=== PATIENT | female | born 1980 | race African-American/Black ===

== ENCOUNTER 2017-01-28 20:20 | Emergency (ER) | payer OTHER ==
[~2017-01-28] VITALS: Ht 172.7 cm; Wt 97.5 kg
[~2017-01-28 20:20] MED LIST: ALEVE220 M1; AMOXICILLIN 50500 MG PO; BACTRIM DS TAB1 EACH PO; BIRTH CONTROL; CEPHALEXIN; CIPROFLOXACIN500 M1 PO; EXCEDRIN CAPLE1 EACH PO; FLAGYL500 MG PO; FLEXERIL PO; IBUPROFEN 600600 M1 PO; IBUPROFEN 800800 M1 PO; IBUPROFEN 800800 MG PO; MEDROLDOSEPACK PO; MONONESSA1 EACH; NOHOMEMEDICATIONS; NORCO 5-325 TA1 EACH PO; OMEPRAZOLE 20 M20 M1; ONDANSETRON HCL4 M2 PO; ULTRAM 50MG TAB50 MG PO; ZOFRAN ODT4 MG PO; ZOFRAN4 MG PO
[2017-01-28 20:22] VITALS: BP 120/83
[2017-01-28] MEDS ORDERED: GENTAMICIN SU3 MG/ML OPHTHALMIC (20:30)
== END 2017-01-28 20:43 | disposition home or self-care (01) ==
LOC: ER 20:20
DX: H10.9 Unspecified conjunctivitis (principal); G43.909 Migraine, unspecified, not intractable, without status migrainosus; Z91.013 Allergy to seafood; Z91.018 Allergy to other foods

== ENCOUNTER 2018-05-05 11:40 | Emergency (ER) | payer OTHER ==
[~2018-05-05] VITALS: Ht 172.7 cm; Wt 90.7 kg
[~2018-05-05 11:40] MED LIST changes: +GENTAMICIN SU3 MG/ML OPHTHALMIC; +NORFLEX100 MG PO
[2018-05-05 13:13] LABS: ABSOLUTE NEUTROPHILS 2.6 thou/uL (1.4-8.2); BASOPHILS 0.5 % (0.0-2.0); EOSINOPHILS 2.6 % (0.0-3.0); HEMATOCRIT 40.4 % (37.0-47.0); HEMOGLOBIN 14.1 gm/dL (12.0-15.0); LYMPHOCYTES 41.7 % (24.0-44.0); MCHC 34.8 g/dL (28.0-37.0); MCV 83.3 fL (80.0-100.0); MONOCYTES 5.5 % (1.0-8.0); PLATELET COUNT 334 thou/uL (150-400); POLYS 49.7 % (36.0-66.0); RBC 4.85 mil/uL (4.20-5.00); RDW 13.9 % (10.5-14.5); WBC 5.3 thou/uL (4.0-11.0)
[2018-05-05 13:15] LABS: CALCIUM 9.5 mg/dL (8.5-10.1); CREATININE 1.1 mg/dL (0.6-1.0); POTASSIUM 4.1 mmol/L (3.5-5.1)
[2018-05-05] MEDS ORDERED: BENADRYL25 MG PO (15:05)
[2018-05-05] MEDS ORDERED: MOBIC15 MG PO (15:05)
[2018-05-05] MEDS ORDERED: COMPAZINE10 M2 PO (15:05)
[2018-05-05 15:08] VITALS: BP 107/66
== END 2018-05-05 15:30 | disposition home or self-care (01) ==
LOC: ER 11:40
PROVIDERS: Emergency Medicine
DX: R51 Headache (principal); R53.1 Weakness; Z91.013 Allergy to seafood; Z91.09 Other allergy status, other than to drugs and biological substances

== ENCOUNTER 2018-11-11 21:31 | Emergency (ER) | payer OTHER ==
[~2018-11-11] VITALS: Ht 172.7 cm; Wt 90.7 kg
[~2018-11-11 21:31] MED LIST changes: +BENADRYL25 MG PO; +COMPAZINE10 M2 PO; +MOBIC15 MG PO
[2018-11-11] MEDS ORDERED: CELEXA20 MG PO (21:40)
[2018-11-12 01:48] VITALS: BP 120/44
== END 2018-11-12 01:49 | disposition home or self-care (01) ==
LOC: ER 21:31
DX: M25.512 Pain in left shoulder (principal); M25.522 Pain in left elbow; M25.532 Pain in left wrist; G43.909 Migraine, unspecified, not intractable, without status migrainosus; Z91.013 Allergy to seafood; Z91.018 Allergy to other foods; Z98.890 Other specified postprocedural states

== ENCOUNTER 2019-01-07 19:37 | Emergency (ER) | payer OTHER ==
[~2019-01-07] VITALS: Ht 172.7 cm; Wt 93.0 kg
[~2019-01-07 19:37] MED LIST changes: +CELEXA20 MG PO
[2019-01-07 19:50] VITALS: BP 127/80
[2019-01-07] MEDS ORDERED: PENICILLIN V P500 MG PO (20:10)
[2019-01-07] MEDS ORDERED: TRAMADOL 50 MG50 MG PO (20:10)
== END 2019-01-07 20:56 | disposition home or self-care (01) ==
LOC: ER 19:37
DX: K02.9 Dental caries, unspecified (principal); G43.909 Migraine, unspecified, not intractable, without status migrainosus; Z91.013 Allergy to seafood; Z91.018 Allergy to other foods; Z98.890 Other specified postprocedural states

== ENCOUNTER 2019-09-13 19:14 | Emergency (ER) | payer OTHER ==
[~2019-09-13] VITALS: Ht 172.7 cm; Wt 93.0 kg
[~2019-09-13 19:14] MED LIST changes: +PENICILLIN V P500 MG PO; +TRAMADOL 50 MG50 MG PO
[2019-09-13 21:27] LABS: ABSOLUTE NEUTROPHILS 2.7 thou/uL (1.4-8.2); BASOPHILS 0.9 % (0.0-2.0); EOSINOPHILS 3.8 % (0.0-3.0); HEMATOCRIT 41.6 % (37.0-47.0); HEMOGLOBIN 13.6 gm/dL (12.0-15.0); LYMPHOCYTES 43.9 % (24.0-44.0); MCH 28.1 pg (26.0-34.0); MCHC 32.8 g/dL (28.0-37.0); MCV 85.6 fL (80.0-100.0); MONOCYTES 6.1 % (1.0-8.0); PLATELET COUNT 323 thou/uL (150-400); POLYS 45.3 % (36.0-66.0); RBC 4.85 mil/uL (4.20-5.00); RDW 13.5 % (10.5-14.5); WBC 5.9 thou/uL (4.0-11.0)
[2019-09-13 21:31] LABS: URINE BILIRUBIN NEGATIVE (Negative); URINE BLOOD NEGATIVE (Negative); URINE CLARITY CLEAR; URINE COLOR YELLOW; URINE GLUCOSE-RANDOM* NEGATIVE (Negative); URINE KETONES NEGATIVE (Negative); URINE LEUKOCYTES-REFLEX NEGATIVE (Negative); URINE NITRITE-REFLEX NEGATIVE (Negative); URINE PROTEIN (DIPSTICK) NEGATIVE (Negative); URINE UROBILINOGEN 0.2 E.U./dl (0.2-1.0)
[2019-09-13 21:38] LABS: CALCIUM 9.1 mg/dL (8.5-10.1); POTASSIUM 3.9 mmol/L (3.5-5.1)
[2019-09-13] MEDS ORDERED: FLONASE 0.05%50 MCG NASAL (21:47)
[2019-09-13 22:02] VITALS: BP 119/80
== END 2019-09-13 21:55 | disposition home or self-care (01) ==
LOC: ER 19:14
PROVIDERS: Physician Assistant
DX: J06.9 Acute upper respiratory infection, unspecified (principal); B34.9 Viral infection, unspecified; R53.81 Other malaise; G43.909 Migraine, unspecified, not intractable, without status migrainosus; Z91.018 Allergy to other foods; Z91.013 Allergy to seafood

== ENCOUNTER 2020-02-26 11:22 | Emergency (ER) | payer BC, OTHER ==
[~2020-02-26] VITALS: Ht 172.7 cm; Wt 84.4 kg
[~2020-02-26 11:22] MED LIST changes: +FLONASE 0.05%50 MCG NASAL
[2020-02-26] MEDS ORDERED: OMEPRAZOLE40 MG PO (11:37)
[2020-02-26] MEDS ORDERED: LEXAPRO20 MG PO (11:37)
[2020-02-26] MEDS ORDERED: PEPCID40 MG PO (11:38)
[2020-02-26 12:42] LABS: HEMATOCRIT 38.3 % (37.0-47.0); HEMOGLOBIN 13.3 gm/dL (12.0-15.0); MCH 29.9 pg (26.0-34.0); MCHC 34.7 g/dL (28.0-37.0); MCV 86.2 fL (80.0-100.0); RBC 4.45 mil/uL (4.20-5.00); RDW 13.6 % (10.5-14.5); WBC 4.9 thou/uL (4.0-11.0)
[2020-02-26 12:56] LABS: CALCIUM 8.9 mg/dL (8.5-10.1); CREATININE 1.1 mg/dL (0.6-1.0); POTASSIUM 3.1 mmol/L (3.5-5.1)
[2020-02-26 12:58] LABS: URINE BLOOD NEGATIVE (Negative); URINE CLARITY CLEAR; URINE COLOR YELLOW; URINE GLUCOSE-RANDOM* NEGATIVE (Negative); URINE KETONES 1+ (Negative); URINE LEUKOCYTES-REFLEX NEGATIVE (Negative); URINE NITRITE-REFLEX NEGATIVE (Negative); URINE PROTEIN (DIPSTICK) NEGATIVE (Negative); URINE SPECIFIC GRAVITY 1.015 (1.005-1.035)
[2020-02-26 13:00] LABS: ALBUMIN 3.9 g/dL (3.4-5.0); DIRECT BILIRUBIN 0.1 mg/dL (<0.1-0.2); MAGNESIUM 1.8 mg/dL (1.8-2.4); TOTAL BILIRUBIN 0.5 mg/dL (0.2-1.0); TOTAL PROTEIN 7.5 g/dL (6.4-8.2)
[2020-02-26 13:06] LABS: ICTOTEST (BILI CONFIRMATORY) Negative (Negative); URINE BILIRUBIN NEGATIVE (Negative)
[2020-02-26 14:20] VITALS: BP 123/84
== END 2020-02-26 14:47 | disposition home or self-care (01) ==
LOC: ER 11:22
PROVIDERS: Emergency Medicine
DX: R53.83 Other fatigue (principal); R53.1 Weakness; G43.909 Migraine, unspecified, not intractable, without status migrainosus; Z71.1 Person with feared health complaint in whom no diagnosis is made; Z79.2 Long term (current) use of antibiotics; Z79.899 Other long term (current) drug therapy; Z91.013 Allergy to seafood; Z91.018 Allergy to other foods; Z88.5 Allergy status to narcotic agent